=== PATIENT | male | born 1990 ===

== ENCOUNTER 2017-03-12 00:30 | Emergency (ER) | payer SELFPAY ==
[2017-03-12] MEDS ORDERED: Sodium Chloride 0.9% 1,000 ML IV ONE (00:39)
[2017-03-12 01:16] LABS: CHLORIDE,CL 104 mEq/L (98-106); SODIUM,NA 142 mEq/L (136-145)
[2017-03-12] MEDS ORDERED: Iopamidol 612 MG/ML 100 ML Bottle IVPUSH ONE (01:21)
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
[2017-03-12] MEDS ORDERED: Diphtheria,Pertussis(Acell),Tetanus Vaccine 0.5 ML Syringe IM ONE (01:50)
[2017-03-12] MEDS ORDERED: ceFAZolin 1 GM Vial IVPUSH ONE (01:56)
[2017-03-12] MEDS ORDERED: Lidocaine 1% with EPINEPHrine 1:100,000 20 ML MDV INJECT ONE (01:57)
[2017-03-12] MEDS ORDERED: Take Home: Acetaminophen/HYDROcodone 325-5 MG, 2 Tab Pack PO ONE (02:46)
== END 2017-03-12 03:53 ==
LOC: CC.ED 00:30
DX: S21.112A Laceration without foreign body of left front wall of thorax without penetration into thoracic cavity, initial encounter (principal); S21.102A Unspecified open wound of left front wall of thorax without penetration into thoracic cavity, initial encounter; X99.1XXA Assault by knife, initial encounter; Z23 Encounter for immunization; F10.129 Alcohol abuse with intoxication, unspecified
CPT/HCPCS: 12002; 36415; 70450; 71010; 71260; 72125; 74177; 80053; 85025; 90471; 90715; 96361; 96374; 99284; A9270; G0480; J0690; J7030; Q9967